=== PATIENT | female | born 1965 | race Caucasian/White ===

== ENCOUNTER 2017-05-05 14:30 | Inpatient (IN) | payer OTHER ==
[~2017-05-05] VITALS: Ht 160 cm; Wt 95.2 kg
[~2017-05-05 14:30] MED LIST: ASPIR 8181 MG PO; BG MC; COLACE100 MG PO; COZAAR100 MG PO; CYCLOBENZAPRINE5 MG PO; FER300 PO; GLU500 PO; GLU850 PO; GLYBURIDE5 MG PO; GOOD SENSE ASPI81 M3 PO; NOR10T PO; PRAVACHOL80 MG PO; PRILOSEC20 MG PO; ZOC10 PO
[2017-05-05 17:28] LABS: BASOPHIL % 0.4 % (0-2); PLATELET COUNT 326 x10^3mcL (130-400); RED CELL DISTRIBUTION WIDTH 13.2 % (11.5-14.5)
[2017-05-05 17:39] LABS: CALCIUM 9.4 mg/dL (8.5-10.1); CREATININE SERUM 1.5 mg/dL (0.6-1.0); POTASSIUM SERUM 4.2 mmol/L (3.5-5.1)
[2017-05-05] MEDS ORDERED: LIPITOR80 MG PO (18:10)
[2017-05-05] MEDS ORDERED: NOR5 PO (18:11)
[2017-05-05] MEDS ORDERED: VITAMIN D32000 I2 PO (18:11)
[2017-05-05] MEDS ORDERED: HYDROCHLOROTHIA25 MG PO (18:12)
[2017-05-05 18:55] VITALS: BP 168/71
[2017-05-05 19:51] LABS: T3 TOTAL 0.91 ng/mL
[2017-05-05 20:21] LABS: ALBUMIN 3.5 g/dL (3.4-5.0); BILIRUBIN TOTAL 0.6 mg/dL (0.20-1.00); CALCIUM 9.5 mg/dL (8.5-10.1); CARBON DIOXIDE 24.1 mmol/L (21-32); CREATININE SERUM 1.4 mg/dL (0.6-1.0); MAGNESIUM 1.4 mg/dL (1.8-2.4); PHOSPHOROUS 3.5 mg/dL (2.5-4.9); POTASSIUM SERUM 4.3 mmol/L (3.5-5.1); TOTAL PROTEIN, SERUM 7.8 g/dL (6.4-8.2)
[2017-05-05 20:22] LABS: CHOLESTEROL/HDL RATIO 3.5
[2017-05-05 20:40] LABS: RED BLOOD CELLS 4.02 M/mm3 (4.10-5.10)
[2017-05-05 20:50] LABS: TOTAL IRON BINDING CAPACITY 268 ug/dL (250-450)
[2017-05-05 20:52] LABS: IRON 27 ug/dL (50-170)
[2017-05-05 21:22] LABS: FREE T4 1.19 ng/dL (0.76-1.46); FREE THYROXINE INDEX 3.6 ug/dL (1.4-4.5); T4(THYROXINE) 9.8 ug/dL (4.7-13.3)
[2017-05-05 22:23] VITALS: BP 116/74
[2017-05-06 04:27] VITALS: BP 116/74
[2017-05-06 04:56] LABS: UA SPECIFIC GRAVITY 1.025 (1.005-1.035); microscopic required? YES; urine erythrocyte NEGATIVE (NEGATIVE)
[2017-05-06 05:05] LABS: AMPHETAMINE QUAL UR NONE DETECTED (NEG <=1000)
[2017-05-06 05:40] VITALS: BP 138/69
[2017-05-06 06:11] LABS: BASOPHIL % 0.7 % (0-2); PLATELET COUNT 286 x10^3mcL (130-400); RED CELL DISTRIBUTION WIDTH 13.5 % (11.5-14.5)
[2017-05-06 06:25] LABS: CALCIUM 9.2 mg/dL (8.5-10.1); CARBON DIOXIDE 22.7 mmol/L (21-32); CREATININE SERUM 1.2 mg/dL (0.6-1.0); MAGNESIUM 1.6 mg/dL (1.8-2.4); PHOSPHOROUS 3.6 mg/dL (2.5-4.9); POTASSIUM SERUM 3.9 mmol/L (3.5-5.1)
[2017-05-06 08:35] VITALS: BP 140/73
[2017-05-06 12:15] VITALS: BP 130/61
[2017-05-06 17:00] VITALS: BP 130/59
[2017-05-06 21:42] VITALS: BP 150/78
[2017-05-07 05:05] VITALS: BP 121/66
[2017-05-07 06:02] LABS: CARBON DIOXIDE 24.9 mmol/L (21-32); CREATININE SERUM 1.1 mg/dL (0.6-1.0); MAGNESIUM 1.7 mg/dL (1.8-2.4); POTASSIUM SERUM 4.4 mmol/L (3.5-5.1)
[2017-05-07 06:20] LABS: BASOPHIL % 0.6 % (0-2); RED CELL DISTRIBUTION WIDTH 13.3 % (11.5-14.5)
[2017-05-07 06:29] LABS: PLATELET COUNT 284 x10^3mcL (130-400)
[2017-05-07 09:15] VITALS: BP 159/69
[2017-05-07 13:51] VITALS: BP 125/53
[2017-05-07] MEDS ORDERED: NOR10T PO (16:02)
[2017-05-07] MEDS ORDERED: AMOXICILLIN/CLA1 TA6 PO (16:11)
[2017-05-07] MEDS ORDERED: LAC PO (16:13)
== END 2017-05-07 17:04 | disposition home or self-care (01) | DRG 385 ==
LOC: ED 14:30 → DU 17:55
PROVIDERS: Emergency Medicine; ADMIT Family Medicine
DX: N63.0 Unspecified lump in unspecified breast (principal); N17.0 Acute kidney failure with tubular necrosis; E87.1 Hypo-osmolality and hyponatremia; E11.65 Type 2 diabetes mellitus with hyperglycemia; E83.42 Hypomagnesemia; D68.69 Other thrombophilia; N39.0 Urinary tract infection, site not specified; D64.9 Anemia, unspecified; I10 Essential (primary) hypertension; Z53.29 Procedure and treatment not carried out because of patient's decision for other reasons; E78.5 Hyperlipidemia, unspecified; Z79.4 Long term (current) use of insulin; Z68.37 Body mass index [BMI] 37.0-37.9, adult; Z79.82 Long term (current) use of aspirin; Z79.84 Long term (current) use of oral hypoglycemic drugs; Z91.018 Allergy to other foods
CPT/HCPCS: 76641; 83880; 84439; J1815; J2543; J3475; J3490; J7030; Q0092

== ENCOUNTER 2017-09-21 07:59 | Day surgery (SDC) | payer OTHER ==
[~2017-09-21] VITALS: Ht 160 cm; Wt 96.2 kg
[~2017-09-21 07:59] MED LIST changes: +AMOXICILLIN/CLA1 TA6 PO; +HYDROCHLOROTHIA25 MG PO; +LAC PO; +LIPITOR80 MG PO; +NOR5 PO; +VITAMIN D32000 I2 PO
[2017-09-21 08:19] VITALS: BP 151/90
[2017-09-21 14:41] VITALS: BP 164/98
== END 2017-09-21 14:40 | disposition home or self-care (01) ==
LOC: DS 07:59 → MA 09:00 → DS 09:00
PROVIDERS: Surgery
PROC: 0HBU0ZZ Excision of Left Breast, Open Approach (ICD-10-PCS; principal; 2017-09-21 11:00)
DX: D24.2 Benign neoplasm of left breast (principal); E11.65 Type 2 diabetes mellitus with hyperglycemia; E11.22 Type 2 diabetes mellitus with diabetic chronic kidney disease; I10 Essential (primary) hypertension; D64.9 Anemia, unspecified
CPT/HCPCS: 76642; 88344; J0690; J1170; J1815; J2001; J2405; J2704; J3010; J3490; J7030; Q0092

== ENCOUNTER 2018-08-10 15:46 | Emergency (ER) | payer OTHER ==
[~2018-08-10] VITALS: Ht 160 cm; Wt 113.4 kg
[2018-08-10 15:50] VITALS: Ht 160 cm; Wt 113.4 kg
[2018-08-10 17:01] LABS: BASOPHIL % 0.7 % (0-2); PLATELET COUNT 296 x10^3mcL (130-400); RED CELL DISTRIBUTION WIDTH 14.1 % (11.5-14.5)
[2018-08-10 17:18] LABS: CALCIUM 8.9 mg/dL (8.5-10.1); CARBON DIOXIDE 27.3 mmol/L (21-32); CREATININE SERUM 1.3 mg/dL (0.6-1.0); POTASSIUM SERUM 4.4 mmol/L (3.5-5.1)
[2018-08-10 17:21] LABS: microscopic required? YES; urine erythrocyte TRACE (NEGATIVE)
[2018-08-10 17:22] LABS: BILIRUBIN TOTAL 0.59 mg/dL (0.20-1.00); TOTAL PROTEIN, SERUM 7.2 g/dL (6.4-8.2)
[2018-08-10 17:23] LABS: ALBUMIN 3.3 g/dL (3.4-5.0)
[2018-08-10 18:38] VITALS: BP 170/99
== END 2018-08-10 18:38 | disposition home or self-care (01) ==
LOC: ED 15:46
PROVIDERS: Emergency Medicine
DX: E11.65 Type 2 diabetes mellitus with hyperglycemia (principal); R42 Dizziness and giddiness
CPT/HCPCS: 82962; J2405; J7030; J8597

== ENCOUNTER 2018-10-31 17:12 | Emergency (ER) | payer OTHER ==
[~2018-10-31] VITALS: Ht 160 cm; Wt 93.4 kg
[2018-10-31 17:19] VITALS: Ht 160 cm; Wt 93.4 kg
[2018-10-31 20:05] VITALS: BP 158/77
== END 2018-10-31 20:05 | disposition home or self-care (01) ==
LOC: ED 17:12
DX: S39.012A Strain of muscle, fascia and tendon of lower back, initial encounter (principal); M43.26 Fusion of spine, lumbar region; I10 Essential (primary) hypertension; E78.00 Pure hypercholesterolemia, unspecified; Z91.018 Allergy to other foods; Z98.890 Other specified postprocedural states; V43.52XA Car driver injured in collision with other type car in traffic accident, initial encounter; Y93.I9 Activity, other involving external motion; Y92.488 Other paved roadways as the place of occurrence of the external cause; Y99.8 Other external cause status
CPT/HCPCS: J1885; J2270; Q0162

== ENCOUNTER 2019-02-05 05:14 | Emergency (ER) | payer OTHER ==
[~2019-02-05] VITALS: Ht 160 cm; Wt 96.2 kg
[2019-02-05 05:18] VITALS: Ht 160 cm; Wt 96.2 kg
[2019-02-05 07:05] LABS: BASOPHIL % 0.7 % (0-2); RED CELL DISTRIBUTION WIDTH 13.8 % (11.5-14.5)
[2019-02-05 07:09] LABS: CALCIUM 9.1 mg/dL (8.5-10.1); CARBON DIOXIDE 25.5 mmol/L (21-32); CHLORIDE SERUM 102 mmol/L (98-107); CREATININE SERUM 1.6 mg/dL (0.6-1.0); GFR1 36 mL/min; GLUCOSE SERUM 317 mg/dL (74-106); POTASSIUM SERUM 4.7 mmol/L (3.5-5.1); SODIUM SERUM 137 mmol/L (136-145)
[2019-02-05 07:12] LABS: PLATELET COUNT 404 x10^3mcL (130-400)
[2019-02-05 07:13] LABS: ALBUMIN 3.5 g/dL (3.4-5.0); ALKALINE PHOSPHATASE 102 U/L (46-116); ALT/SGPT 19 U/L (14-59); AST/SGOT 13 U/L (15-37); BILIRUBIN TOTAL 0.38 mg/dL (0.20-1.00); LIPASE 195 IU/L (73-393); TOTAL PROTEIN, SERUM 7.7 g/dL (6.4-8.2)
[2019-02-05 07:40] LABS: microscopic required? YES; urine erythrocyte NEGATIVE (NEGATIVE)
[2019-02-05 12:53] VITALS: BP 145/86
== END 2019-02-05 12:53 | disposition home or self-care (01) ==
LOC: ED 05:14
PROVIDERS: Emergency Medicine
DX: N39.0 Urinary tract infection, site not specified (principal); I10 Essential (primary) hypertension; E11.9 Type 2 diabetes mellitus without complications; E78.00 Pure hypercholesterolemia, unspecified; Z91.018 Allergy to other foods; Z90.710 Acquired absence of both cervix and uterus; Z98.890 Other specified postprocedural states
CPT/HCPCS: 36415; G0480; J0696; J1885

== ENCOUNTER 2019-07-14 12:53 | Emergency (ER) | payer OTHER ==
[~2019-07-14] VITALS: Ht 162.6 cm; Wt 95.3 kg
[2019-07-14 13:15] VITALS: Ht 162.6 cm; Wt 95.3 kg
[2019-07-14 14:05] VITALS: BP 128/70
== END 2019-07-14 14:05 | disposition home or self-care (01) ==
LOC: ED 12:53
DX: B34.9 Viral infection, unspecified (principal); I10 Essential (primary) hypertension; E11.9 Type 2 diabetes mellitus without complications; E78.00 Pure hypercholesterolemia, unspecified; Z98.890 Other specified postprocedural states